=== PATIENT | female | born 1955 | race Caucasian/White ===

== ENCOUNTER 2016-12-31 10:32 | Outpatient (CLI) | payer OTHER ==
[2016-12-31 12:15] LABS: #Basophils 0.1 thou/uL (0.0-0.2); #Eosinphils 0.1 thou/uL (0.0-0.7); #Lymphocytes 3.6 thou/uL (1.20-3.40); #Monocytes 0.8 thou/uL (0.11-0.59); #Neutrophils 2.9 thou/uL (1.40-6.50); %Basophils 0.9 % (0.0-1.0); %Eosinophils 1.8 % (0.0-10.0); %Lymphocytes 48.2 % (21.0-51.0); %Monocytes 10.2 % (0.0-10.0); %Neutrophils 38.9 % (42.0-75.0); Hemoglobin 12.9 g/dL (12.0-16.0); Mean Corpuscular HGB CONC 33.2 g/dL (32.0-36.0); Mean Corpuscular Hemoglobin 30.6 pg (27.0-31.0); Mean Corpuscular Volume 92.2 fl (81.0-99.0); Mean Platelet Volume 9.6 fL (7.4-10.4); Platelet Count 143 thou/uL (130-400); RBC Distribution Width 11.6 % (11.5-14.5); Red Blood Cell (RBC) Count 4.23 mill/uL (4.20-5.40); White Blood Cell (WBC) Count 7.4 thou/uL (4.8-10.8)
[2016-12-31 12:21] LABS: ALT (SGPT) 98 U/L (8-55); AST (SGOT) 80 U/L (5-34); Albumin 3.9 g/dL (3.4-4.8); Alkaline Phosphatase 87 U/L (40-150); Anion Gap 17 mmol/L (10-20); BUN (Urea Nitrogen) 14 mg/dL (9.8-20.1); Calc. Creatinine Clearance 0 mL/min (70-130); Carbon Dioxide 24 mmol/L (23-31); Cardiac Risk 3.5 (Less than 4.5); Chloride 100 mmol/L (98-107); Cholesterol 188 mg/dl (< 200 Desired); Estimated GFR-MDRD 71; Globulin 3.5 g/dL (2.4-3.5); Glucose 127 mg/dL (80-115); HDL Cholesterol 53 mg/dL (>60 Neg Risk); LDL Cholesterol, Calculated 110 mg/dL; Potassium 4.4 mmol/L (3.5-5.1); Protein, Total 7.4 g/dL (6.0-8.3); Sodium 137 mmol/L (136-145); Triglycerides 124 mg/dL (Less than 150)
[2016-12-31 12:42] LABS: Bilirubin Negative (Negative); Blood, Urine Negative (Negative); Clarity Clear (Clear); Free T4 (Free Thyroxine) 1.04 ng/dL (0.70-1.48); Glucose, Urine (Dipstick) Negative (Negative); Leukocyte Small (Negative); Nitrite Negative (Negative); Protein, Urine (Dipstick) Negative (Neg-Trace); Specific Gravity, Urine 1.015 (1.005-1.030); Urobilinogen 0.2 mg/dL (0.2-1.0); Vitamin D, 25 Hydroxy 36.9 ng/ml (> 30.0)
[2016-12-31 12:45] LABS: Bacteria/HPF Rare-Few HPF (None Seen); Other Microscopic Description NO; RBC/HPF None Seen HPF (0-3); Squamous Epithelial 0-3 HPF (0-3)
[2016-12-31 12:57] LABS: Hemoglobin A1c 6.7 % (4.0-6.0)
== END 2016-12-31 10:33 | disposition home or self-care (01) ==
LOC: NAVSJIPCSP 10:32 → NAV LAB 10:33
PROVIDERS: ATTEND Internal Medicine
DX: E55.9 Vitamin D deficiency, unspecified (principal); E11.9 Type 2 diabetes mellitus without complications; R74.0 Nonspecific elevation of levels of transaminase and lactic acid dehydrogenase [LDH]; I11.9 Hypertensive heart disease without heart failure; J01.00 Acute maxillary sinusitis, unspecified; Z79.899 Other long term (current) drug therapy
CPT/HCPCS: 80053; 80061; 81003; 81015; 82306; 83036; 84439; 84481; 85025

== ENCOUNTER 2017-06-26 11:07 | Outpatient (CLI) | payer OTHER | END 2017-06-26 11:08 | disposition home or self-care (01) | LOC: NAV RAD 11:07 | PROVIDERS: ATTEND Internal Medicine | DX: R94.31 Abnormal electrocardiogram [ECG] [EKG] (principal); E78.5 Hyperlipidemia, unspecified | CPT/HCPCS: 93005 ==

== ENCOUNTER 2018-11-13 04:42 | Outpatient (CLI) | payer OTHER ==
--- NOTE | 2018-11-13 07:54 | RAD ---
RIGHT SHOULDER 3 VIEWS: Date: 11/13/18 HISTORY: Right shoulder pain. FINDINGS: There are arthritic changes of the AC and some minimal degenerative changes of the glenohumeral joint space. There are no signs of fracture or dislocation. IMPRESSION: Mild arthritic changes of the shoulder. POS: [facility]
== END 2018-11-13 04:43 | disposition home or self-care (01) ==
LOC: NAV RAD 04:42
PROVIDERS: ATTEND Family Medicine
DX: M25.511 Pain in right shoulder (principal); M19.011 Primary osteoarthritis, right shoulder